=== PATIENT | female | born 1935 | race Caucasian/White ===

== ENCOUNTER → 2016-07-29 | Outpatient (CLI) | payer MEDICARE, OTHER ==
--- NOTE | 2016-07-30 16:33 | RAD ---
DATE: 07/29/2016 EXAM: DIGITAL DIAGNOSTIC RT HISTORY: Possible abnormality seen on screening COMPARISON: Screening examination 8 days earlier This study was interpreted with the benefit of Computerized Aided Detection (CAD ). FINDINGS: Breast Density: Unchanged relative to the screening exam. 2 cc common compression views were obtained as well as rolled cc views. On the additional views no abnormality is seen. A follow-up right cc view of the breast is suggested in 6 months to further document stability IMPRESSION: Probable benign findings BI-RADS CATEGORY: 3 PROBABLE BENIGN FINDING(S-SHORT INTERVAL FOLLOW-UP SUGGESTED RECOMMENDED FOLLOW-UP: 6M 6 MONTH FOLLOW-UP PQRS compliance statement: Patient information was entered into a reminder system with a target due date 01/29/2017 for the next mammogram. Mammography is a sensitive method for finding small breast cancers, but it does not detect them all and is not a substitute for careful clinical examination. A negative mammogram does not negate a clinically suspicious finding and should not result in delay in biopsying a clinically suspicious abnormality. "Our facility is accredited by the [employer] Mammography [employer]." SHALINID
== END | disposition home or self-care (01) ==
LOC: MAMMO 13:18
PROVIDERS: ATTEND Family Medicine
DX: R92.8 Other abnormal and inconclusive findings on diagnostic imaging of breast (principal)
CPT/HCPCS: G0206; 77065

== ENCOUNTER → 2017-04-16 | Outpatient (CLI) | payer MEDICARE, OTHER ==
--- NOTE | 2017-04-16 15:04 | RAD ---
DATE: 04/16/2017 EXAM: MAMMO DEQUAN DIAG RT HISTORY: 6 month follow-up COMPARISON: 07/29/2016, 07/21/2016 This study was interpreted with the benefit of Computerized Aided Detection (CAD). The breast parenchyma is heterogeneously dense, which could reduce sensitivity of mammography. Breast parenchyma level C. FINDINGS: 2-D and 3-D tomosynthesis imaging was performed in only the CC projection as requested. No discrete mass is seen. No new or enlarging breast densities are evident. IMPRESSION: Stable right mammogram without evidence of malignancy. Follow-up bilateral mammography in 6 months and then at routine yearly intervals is suggested. BI-RADS CATEGORY: 3 PROBABLY BENIGN FINDING(S)-SHORT INTERVAL FOLLOW-UP SUGGESTED RECOMMENDED FOLLOW-UP: 6M 6 MONTH FOLLOW-UP PQRS compliance statement: Patient information was entered into a reminder system with a target due date for the next mammogram. Mammography is a sensitive method for finding small breast cancers, but it does not detect them all and is not a substitute for careful clinical examination. A negative mammogram does not negate a clinically suspicious finding and should not result in delay in biopsying a clinically suspicious abnormality. "Our facility is accredited by the [employer] Mammography [employer]."
== END | disposition home or self-care (01) ==
LOC: MAMMO 14:00
PROVIDERS: ATTEND Family Medicine
DX: N63.10 Unspecified lump in the right breast, unspecified quadrant (principal); R92.8 Other abnormal and inconclusive findings on diagnostic imaging of breast
CPT/HCPCS: 77065; G0279; 77061

== ENCOUNTER → 2017-10-15 | Outpatient (CLI) | payer MEDICARE, OTHER ==
--- NOTE | 2017-10-15 13:56 | RAD ---
DATE: 10/15/2017 EXAM: MAMMO DEQUAN DIAG BILAT HISTORY: 6 month follow-up on the right, routine screening on the left COMPARISON: 04/16/2017, 07/29/2016, 07/21/2016 This study was interpreted with the benefit of Computerized Aided Detection (CAD). The breast parenchyma is heterogeneously dense, which could reduce sensitivity of mammography. Breast parenchyma level C. FINDINGS: 2-D and 3-D tomosynthesis imaging was performed in CC and MLO projections. The fibroglandular tissues are heterogeneous and multinodular in character. No new or enlarging breast density is seen. Benign type calcifications are present. No suspicious microcalcifications have developed. IMPRESSION: Stable mammograms without evidence of malignancy. BI-RADS CATEGORY: 2 BENIGN FINDING(S) RECOMMENDED FOLLOW-UP: 12M 12 MONTH FOLLOW-UP PQRS compliance statement: Patient information was entered into a reminder system with a target due date for the next mammogram. Mammography is a sensitive method for finding small breast cancers, but it does not detect them all and is not a substitute for careful clinical examination. A negative mammogram does not negate a clinically suspicious finding and should not result in delay in biopsying a clinically suspicious abnormality. "Our facility is accredited by the [employer] Mammography [employer]."
== END | disposition home or self-care (01) ==
LOC: MAMMO 13:07
PROVIDERS: ATTEND Family Medicine
DX: R92.8 Other abnormal and inconclusive findings on diagnostic imaging of breast (principal)
CPT/HCPCS: 77066; G0279; 77062

== ENCOUNTER 2021-02-13 19:10 | Emergency (ER) | payer MEDICARE, OTHER ==
[~2021-02-13] VITALS: Ht 152.4 cm; Wt 68.2 kg
[2021-02-13 19:21] VITALS: BP 131/54
--- NOTE | 2021-02-13 19:22 | PHYS DOC ---
General Adult EDM: Chief Complaint: MECHANICAL FALL HPI: HPI: Patient is a 85 female brought in by EMS after a fall. 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 Denies any loss of consciousness. Has small lacerations to her right forehead and face. Denies any blood thinners, unsure when her last tetanus was, otherwise has been well. She is right-handed Review of Systems: Review of Systems: All other systems within normal limits except for as noted in the HPI Allergies: Allergies: Allergies Coded Allergies Type Severity Reaction Last Updated Verified No Known Drug Allergies 02/13/21 No Physical Exam: PE: Constitutional: Well developed, well nourished, no acute distress, non-toxic appearance. [] HENT: Normocephalic, atraumatic, bilateral external ears normal, nose normal. [] Eyes: PERRLA, conjunctiva normal, no discharge. [] Neck: No rigidity, supple, no stridor. [] Cardiovascular: Regular rate and rhythm, brisk cap refill [] Lungs & Thorax: Non labored symmetric respirations, no tachypnea or respiratory distress [] Abdomen: Soft, nondistended. Skin: Warm, dry, no erythema, no rash. Skin avulsion to right face, superficial abrasion to left forehead [] Back: Unremarkable Extremities: Right wrist deformity, neurovascular intact distal to injury., range of motion grossly intact, no lower extremity edema [] Neurologic: Alert and oriented X 3, no focal deficits noted. [] Psychologic: Affect normal, judgement normal, mood normal. [] EKG: EKG: [] Radiology/Procedures: Radiology/Procedures: [address] [address] IMAGING REPORT Signed PATIENT: SANDRA MACEDO ACCOUNT: [id number] : 1935 LOCATION: ER AGE: 85 SEX: F EXAM STATUS: REG ER ORD. PHYSICIAN: BRITTANY DU MD REASON: fall, head injury PROCEDURE: CT HEAD AND CERVICAL SPINE WO STUDY: CT head and cervical spine without contrast INDICATION: Fall. Head injury. COMPARISON: None. TECHNIQUE: Axial CT imaging through the head and cervical spine without the use of intravenous contrast. Sagittal and coronal reformats were obtained. One or more of the following individualized dose reduction techniques were utilized for this examination: 1. Automated exposure control 2. Adjustment of the mA and/or kV according to patient size 3. Use of iterative reconstruction technique. FINDINGS: CT head: No acute intracranial hemorrhage. Ballesteros-white matter differentiation is maintained. No localized mass effect, midline shift or hydrocephalus. White matter findings most frequently on account of chronic microvascular ischemic change. Intracranial calcific atherosclerosis. Parenchymal volume loss. Suspected mild right frontal scalp contusion extending downward to the upper margin of the right orbit. There may be mild contusion along the right zygomatic arch. No retrobulbar hematoma. No depressed calvarial fracture. Diffuse ost eopenia. Normally aerated mastoid air cells. CT cervical spine: Diffuse osteopenia in addition to patient body habitus limiting evaluation for subtle fractures. No displaced fracture is identified. No traumatic malalignment. Grade 1 anterolisthesis of C4 on C5 appears secondary to facet arthrosis which is asymmetrically more advanced on the right. Discogenic arthrosis is most pronounced at C5-C6. No severe osseous neural foraminal stenosis or evidence for more than moderate central canal narrowing. No soft tissue sequela of trauma seen throughout the neck. Scattered calcific atherosclerosis. Retropharyngeal course of the carotid arteries. Partially mineralized left thyroid lobe nodule not meeting size criteria for dedicated follow-up. No apical pneumothorax. Asymmetrically advanced temporomandibular joint arthrosis on the right. Partially opacified right maxillary sinus likely with inspissated secretions or fungal colonization. Opacified right aspect of the sphenoid sinus. IMPRESSION: CT head: 1. No acute intracranial hemorrhage or depressed calvarial fracture. Suspected mild frontal scalp contusion on the right. 2. Chronic/senescent observations described above. CT cervical spine: 1. Taking into consideration diffuse osteopenia, no acute fracture. No traumatic malalignment. 2. Degenerative grade 1 anterolisthesis of C4 on C5. Multilevel degenerative changes. No evidence for severe central canal stenosis. Electronically signed by: JAMIL SANCHEZ MD (02/13/2021 9:29 PM) [id number] DICTATED AND SIGNED BY: JAMIL SANCHEZ MD DATE: 02/13/212121 CC: BRITTANY DU MD; [facility] 0 [][place] [id number] IMAGING REPORT Signed PATIENT: SANDRA MACEDO ACCOUNT: [id number] : 1935 LOCATION: ER AGE: 85 SEX: F EXAM STATUS: REG ER ORD. PHYSICIAN: BRITTANY DU MD REASON: fall, deformity PROCEDURE: FOREARM RIGHT Study: 1. XR ELBOW COMPLETE_RIGHT 3+ VIEWS 2. XR FOREARM_RIGHT 2 VIEWS 3. XR HAND_RIGHT 3 VIEWS Indication: Fall. Deformity. Comparison: None. Findings: Right elbow: No acute fracture is identified. Alignment is within normal limits. Limited assessment for an elbow joint effusion due to obliquity on the lateral view. Nonspecific irregularity of the soft tissues at the dorsum of the elbow. Minimal arthrosis. Right forearm: The radius and ulnar shafts are intact. Right hand: Acute horizontally oriented fracture at the distal radial metaphysis with mild impaction and minimal volar apex angulation. Possible subtle extension into the radiocarpal joint space. No fracture displacement. Acute longitudinally oriented fracture at the periphery of the distal ulna extending through the base of the ulnar styloid process. 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 Bony irregularity at the dorsum of the lunate on the lateral view appears to be chronic. No definitive acute carpal bone fracture. Nonacute flexion deformity across the thumb MCP joint. Impression: Right elbow: 1. No displaced fracture or malalignment. Right forearm: 1. Intact radius and ulnar diaphyses. Right hand: 1. Acute distal radius fracture centered at the metaphysis with minimal impaction and volar apex angulation. Possible very subtle fracture extension through the radial articular surface. 2. Additional longitudinally oriented fracture of the distal ulna extending to the base of the ulnar styloid process. 3. 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 Diffuse osteopenia. Electronically signed by: JAMIL SANCHEZ MD (02/13/2021 9:22 PM) [id number] DICTATED AND SIGNED BY: JAMIL SANCHEZ MD DATE: 02/13/212115 CC: RBITTANY DU MD; PAMELLA CORTÉS ~MTH0 0 Heart Score: C/O Chest Pain: No Risk Factors: Risk Factors: DM, Current or recent (<one month) smoker, HTN, HLP, family history of CAD, obesity. Risk Scores: Score 0 - 3: 2.5% MACE over next 6 weeks - Discharge Home Score 4 - 6: 20.3% MACE over next 6 weeks - Admit for Clinical Observation Score 7 - 10: 72.7% MACE over next 6 weeks - Early Invasive Strategies Course & Med Decision Making: Course & Med Decision Making Pertinent Labs and Imaging studies reviewed. (See chart for details) [] Dragon Disclaimer: Dragon Disclaimer: This electronic medical record was generated, in whole or in part, using a voice recognition dictation system. Departure Departure: Impression: Primary Impression: Right wrist fracture Additional Impressions: Fall Forehead contusion Abrasion of face Disposition: HOME / SELF CARE / HOMELESS Condition: STABLE Referrals: PAMELLA CORTÉS (PCP) SAHARA GREEN II, MD Patient Instructions: Splint Care-Brief Scripts Hydrocodone/Acetaminophen (Hydrocodone-Acetamin 5-325 mg) 1 Each Tablet 1 EACH PO PRN Q6-8HRS PRN for PAIN for 3 Days, #10 TAB Prov: BRITTANY DU MD 02/13/21 BRITTANY DU MD Feb 13, 2021 19:22
[2021-02-13] MEDS ORDERED: DIPH,PERTUSS(ACELL),TET VAC/PF 0.5 ML SYRINGE. VAX IM ONE (19:30)
--- NOTE | 2021-02-13 21:25 | RAD ---
Study: 1. XR ELBOW COMPLETE_RIGHT 3+ VIEWS 2. XR FOREARM_RIGHT 2 VIEWS 3. XR HAND_RIGHT 3 VIEWS Indication: Fall. Deformity. Comparison: None. Findings: Right elbow: No acute fracture is identified. Alignment is within normal limits. Limited assessment for an elbow j oint effusion due to obliquity on the lateral view. Nonspecific irregularity of the soft tissues at t he dorsum of the elbow. Minimal arthrosis. Right forearm: The radius and ulnar shafts are intact. Right hand: Acute horizontally oriented fracture at the distal radial metaphysis with mild impaction and minimal volar apex angulation. Possible subtle extension into the radiocarpal joint space. No fracture displa cement. Acute longitudinally oriented fracture at the periphery of the distal ulna extending through the base of the ulnar styloid process. 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 Bony irregularity at the dorsum of the lunate on the late ral view appears to be chronic. No definitive acute carpal bone fracture. Nonacute flexion deformity across the thumb MCP joint. Impression: Right elbow: 1. No displaced fracture or malalignment. Right forearm: 1. Intact radius and ulnar diaphyses. Right hand: 1. Acute distal radius fracture centered at the metaphysis with minimal impaction and volar apex angu lation. Possible very subtle fracture extension through the radial articular surface. 2. Additional longitudinally oriented fracture of the distal ulna extending to the base of the ulnar styloid process. 3. 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 Diffuse osteopenia. Electronically signed by: JAMIL SANCHEZ MD (02/13/2021 9:22 PM) [id number]
[2021-02-13] MEDS ORDERED: NEOMY/BACITR/POLYMYXIN OINT PACKET. TP ONE (21:30)
--- NOTE | 2021-02-13 21:32 | RAD ---
STUDY: CT head and cervical spine without contrast INDICATION: Fall. Head injury. COMPARISON: None. TECHNIQUE: Axial CT imaging through the head and cervical spine without the use of intravenous contra st. Sagittal and coronal reformats were obtained. One or more of the following individualized dose reduction techniques were utilized for this examinat ion: 1. Automated exposure control 2. Adjustment of the mA and/or kV according to patient size 3. Use of iterative reconstruction technique. FINDINGS: CT head: No acute intracranial hemorrhage. Ballesteros-white matter differentiation is maintained. No localized mass effect, midline shift or hydrocephalus. White matter findings most frequently on account of chronic microvascular ischemic change. Intracrani al calcific atherosclerosis. Parenchymal volume loss. Suspected mild right frontal scalp contusion extending downward to the upper margin of the right orbi t. There may be mild contusion along the right zygomatic arch. No retrobulbar hematoma. No depressed calvarial fracture. Diffuse osteopenia. Normally aerated mastoid air cells. CT cervical spine: Diffuse osteopenia in addition to patient body habitus limiting evaluation for subtle fractures. No d isplaced fracture is identified. No traumatic malalignment. Grade 1 anterolisthesis of C4 on C5 appea rs secondary to facet arthrosis which is asymmetrically more advanced on the right. Discogenic arthro sis is most pronounced at C5-C6. No severe osseous neural foraminal stenosis or evidence for more dipti n moderate central canal narrowing. No soft tissue sequela of trauma seen throughout the neck. Scattered calcific atherosclerosis. Retrop haryngeal course of the carotid arteries. Partially mineralized left thyroid lobe nodule not meeting size criteria for dedicated follow-up. No apical pneumothorax. Asymmetrically advanced temporomandibu lar joint arthrosis on the right. Partially opacified right maxillary sinus likely with inspissated s ecretions or fungal colonization. Opacified right aspect of the sphenoid sinus. IMPRESSION: CT head: 1. No acute intracranial hemorrhage or depressed calvarial fracture. Suspected mild frontal scalp co ntusion on the right. 2. Chronic/senescent observations described above. CT cervical spine: 1. Taking into consideration diffuse osteopenia, no acute fracture. No traumatic malalignment. 2. Degenerative grade 1 anterolisthesis of C4 on C5. Multilevel degenerative changes. No evidence fo r severe central canal stenosis. Electronically signed by: JAMIL SANCHEZ MD (02/13/2021 9:29 PM) [id number]
[2021-02-13] MEDS ORDERED: HYDR-2759 PO (21:51)
[2021-02-13] MEDS ORDERED: HYDROcodone/APAP 5/325MG 1 TAB TABLET PO ONE (22:00)
== END 2021-02-13 22:19 | disposition home or self-care (01) ==
LOC: ER 19:10
DX: S62.101A Fracture of unspecified carpal bone, right wrist, initial encounter for closed fracture (principal); S00.83XA Contusion of other part of head, initial encounter; W18.39XA Other fall on same level, initial encounter; Y93.89 Activity, other specified; Y92.89 Other specified places as the place of occurrence of the external cause; Y99.8 Other external cause status
CPT/HCPCS: 70450; 72125; 73080; 73090; 73130; 90471; 90715; 96372; 99284; J3010